=== PATIENT | female | born 1970 | race Caucasian/White ===

== ENCOUNTER → 2021-01-03 10:12 | Outpatient (BNVA) | payer MEDICAID, SELFPAY | PROVIDERS: PCP Dermatology; Visit Provider Physician Assistant ==

== ENCOUNTER → 2021-01-10 07:26 | Outpatient (BNVA) | payer MEDICAID, SELFPAY | PROVIDERS: PCP Dermatology; Visit Provider Surgery ==

== ENCOUNTER → 2021-02-17 08:44 | Outpatient (BNVA) | payer MEDICAID, SELFPAY | PROVIDERS: PCP Dermatology; Visit Provider Dietitian, Registered ==

== ENCOUNTER → 2022-12-30 10:46 | Outpatient (BNVA) | payer OTHER, SELFPAY | PROVIDERS: PCP Dermatology; Visit Provider Physician Assistant Surgical | DX: Z13.89 Encounter for screening for other disorder (principal) ==

== ENCOUNTER → 2022-12-31 13:22 | Outpatient (BNVA) | payer OTHER, SELFPAY | PROVIDERS: PCP Dermatology; Referring Provider Dermatology; Visit Provider Physician Assistant Surgical | DX: Z11.0 Encounter for screening for intestinal infectious diseases (principal); E66.01 Morbid (severe) obesity due to excess calories; Z68.41 Body mass index [BMI] 40.0-44.9, adult | CPT/HCPCS: 99211; 99212 ==

== ENCOUNTER 2022-12-31 17:21 | Outpatient (REF) | payer OTHER, SELFPAY ==
[2023-01-02 15:03] LABS: H Pylori Breath Test Positive (Negative)
== END 2022-12-31 17:22 | disposition home or self-care (01) ==
LOC: HO.LNP 17:21
PROVIDERS: Visit Provider Physician Assistant Surgical
DX: E66.01 Morbid (severe) obesity due to excess calories (principal); Z11.0 Encounter for screening for intestinal infectious diseases
CPT/HCPCS: 83013

== ENCOUNTER 2023-01-02 08:04 | Outpatient (REF) | payer OTHER, SELFPAY ==
--- NOTE | ~2023-01-02 | XR_ITS ---
EXAMINATION: XR CHEST CLINICAL INFORMATION: Morbid/severe obesity due to excess calories COMPARISON: None TECHNIQUE: 2 views of the chest were obtained. FINDINGS: No significant abnormality is noted involving the heart, lungs, mediastinum, bony thorax or soft tissues. XR/XR chest 2V IMPRESSION: Unremarkable chest examination.
[2023-01-02 08:53] LABS: MANUAL DIFF FLAG NO
[2023-01-02 09:20] LABS: Basophils Percent Auto 0.6 % (0-2); Eosinophils Absolute Auto 0.1 X10*3/uL (0.0-0.4); Eosinophils Percent Auto 1.7 % (0-4); Estimated Average Glucose 108 mg/dL; Hematocrit 38.9 % (37.0-47.0); Hemoglobin 12.7 g/dl (12.0-16.0); Hemoglobin A1c % 5.4 %; Imm Gran Abs Auto 0.02 X10*3/uL (0.00-0.03); Imm Gran Pct Auto 0.3 % (0.0-0.4); Lymphocytes Absolute Auto 1.5 X10*3/uL (1.2-4.9); Lymphocytes Percent Auto 22.3 % (20-40); Mean Corpuscular HGB Conc 32.6 g/dl (31.0-35.0); Mean Corpuscular Hemoglobin 28.6 pg (27.0-33.0); Mean Corpuscular Volume 87.6 fL (80.0-98.0); Mean Platelet Volume 10.2 fL (9.4-12.3); Monocytes Absolute Auto 0.5 X10*3/uL (0.1-1.2); Neutrophils Absolute Auto 4.4 x10*3/uL (2.0-8.3); Neutrophils Percent Auto 67.1 % (45-73); Platelet Count 327 X10*3/uL (160-400); Red Blood Count 4.44 X10*6/uL (4.20-5.50); White Blood Count 6.5 X10*3/uL (4.8-10.8)
[2023-01-02 10:17] LABS: Alanine Aminotransferase 15 U/L (0-31); Albumin Level 4.3 g/dL (3.5-5.0); Alkaline Phosphatase 95 U/L (39-117); Anion Gap 13 (12-20); Aspartate Amino Transferase 15 U/L (5-31); Bilirubin Total 0.6 mg/dL (0.0-1.0); Blood Urea Nitrogen 14 mg/dL (9-16); C Reactive Protein 1.37 mg/dL (< or = 0.50); Carbon Dioxide 24 mmol/L (22-29); Chloride 109 mmol/L (96-108); Cholesterol 246 mg/dL; Estimated Glomerular Filt Rate > 60; Ferritin 78 ng/mL (10-250); Glucose Random 102 mg/dL (60-115); HDL Cholesterol 46 mg/dL; Insulin 9 uU/mL (2-29); Iron 87 mcg/dL (30-160); LDL Cholesterol Calculated 176 mg/dl; Percent Iron Saturation 32 % (15-50); Potassium 3.8 mmol/L (3.3-5.1); Sodium 142 mmol/L (135-145); TSH reflex Free T4 2.49 uIU/mL (0.32-4.0); Total Iron Binding Capacity 269 mcg/dL (228-428); Total Protein 7.3 g/dL (6.5-8.0); Triglycerides 124 mg/dL; Unsaturated Iron Binding 182 ug/dL; Vitamin B12 355 pg/mL (200-900); Vitamin D 25-OH Total 13.9 ng/mL (>30)
[2023-01-04 15:53] LABS: Calcium (PTHI) 9.1 mg/dL (8.6-10.4); PTHI 90 pg/mL (16-77)
[2023-01-05 16:23] LABS: Zinc 74 mcg/dL (60-130)
[2023-01-06 16:19] LABS: Vitamin A 26 mcg/dL (38-98)
[2023-01-07 16:24] LABS: Vitamin B1 12 nmol/L (8-30)
== END 2023-01-02 08:05 | disposition home or self-care (01) ==
LOC: HO.LAB 08:04
PROVIDERS: PCP Dermatology; Visit Provider Physician Assistant Surgical
DX: E66.01 Morbid (severe) obesity due to excess calories (principal)
CPT/HCPCS: 36415; 71046; 80053; 80061; 82306; 82607; 82728; 82746; 83036; 83525; 83540; 83970; 84425; 84443; 84590; 84630; 85025; 86140

== ENCOUNTER → 2023-01-04 07:28 | Outpatient (REF) | payer OTHER, SELFPAY ==
--- NOTE | 2023-01-04 07:51 | ECG_ITS ---
Test Reason : e66.01 Blood Pressure : / mmHG Vent. Rate : 086 BPM Atrial Rate : 086 BPM P-R Int : 182 ms QRS Dur : 084 ms QT Int : 366 ms P-R-T Axes : 047 017 038 degrees QTc Int : 437 ms Normal sinus rhythm Normal ECG No previous ECGs available Referred By: Rainer Sigala Electronically Signed By:
== END ==
LOC: HO.CARD 07:28
PROVIDERS: PCP Internal Medicine; Visit Provider Physician Assistant Surgical
DX: E66.01 Morbid (severe) obesity due to excess calories (principal)
CPT/HCPCS: 93005

== ENCOUNTER → 2023-01-18 11:35 | Outpatient (BNVA) | payer OTHER, SELFPAY | PROVIDERS: PCP Internal Medicine; Visit Provider Physician Assistant Surgical ==

== ENCOUNTER → 2023-01-29 14:18 | Outpatient (BNVA) | payer OTHER, SELFPAY | PROVIDERS: PCP Internal Medicine; Referring Provider Physician Assistant Surgical; Visit Provider Dietitian, Registered | DX: E66.9 Obesity, unspecified (principal); Z68.38 Body mass index [BMI] 38.0-38.9, adult | CPT/HCPCS: 97802 ==

== ENCOUNTER → 2023-02-19 14:58 | Outpatient (BNVA) | payer MEDICAID, SELFPAY | PROVIDERS: PCP Internal Medicine; Visit Provider Dietitian, Registered ==

== ENCOUNTER 2023-02-23 09:34 | Outpatient (REF) | payer MEDICAID, SELFPAY ==
[2023-02-24 13:49] LABS: H Pylori Breath Test Negative (Negative)
== END 2023-02-23 09:35 | disposition home or self-care (01) ==
LOC: HO.LNP 09:34
PROVIDERS: PCP Internal Medicine; Visit Provider Physician Assistant Surgical
DX: Z01.818 Encounter for other preprocedural examination (principal); E66.01 Morbid (severe) obesity due to excess calories; A04.8 Other specified bacterial intestinal infections; Z71.3 Dietary counseling and surveillance; Z79.899 Other long term (current) drug therapy
CPT/HCPCS: 83013; 99211; 99212

== ENCOUNTER → 2023-03-04 13:00 | Outpatient (BNVA) | payer OTHER, SELFPAY | PROVIDERS: PCP Internal Medicine; Visit Provider Counselor Mental Health ==

== ENCOUNTER → 2023-03-17 14:03 | Outpatient (BNVA) | payer OTHER, SELFPAY | PROVIDERS: PCP Internal Medicine; Visit Provider Dietitian, Registered | DX: E66.01 Morbid (severe) obesity due to excess calories (principal); K21.9 Gastro-esophageal reflux disease without esophagitis; Z68.36 Body mass index [BMI] 36.0-36.9, adult; Z71.3 Dietary counseling and surveillance | CPT/HCPCS: 97803 ==

== ENCOUNTER → 2023-03-26 12:47 | Outpatient (BNVA) | payer OTHER, SELFPAY | PROVIDERS: PCP Internal Medicine; Visit Provider Physician Assistant Surgical ==

== ENCOUNTER → 2023-04-16 08:59 | Outpatient (BNVA) | payer OTHER, SELFPAY | PROVIDERS: PCP Internal Medicine; Visit Provider Surgery ==

== ENCOUNTER 2023-06-07 07:53 | Outpatient (AMB) | payer OTHER, SELFPAY ==
--- OUTSIDE RECORDS SUMMARY | 2023-06-07 07:55 | XMS_ITS | Continuity of Care Document ---
Author Name Unknown Organization [facility] Address [address] [place] [address]- Care Team Providers Care Manager Heart Failure Name Role Phone Not on Staff, PCP Primary Care Physician Unavail able Encounter [facility] Date(s): 11/20/20 - 12/20/[address] [address]- Attending Physician: Todd Tomlinson Admitting Physician: Todd Tomlinson Referring Physician: Todd Tomlinson
--- OUTSIDE RECORDS SUMMARY | 2023-06-07 07:55 | XMS_ITS | Continuity of Care Document ---
Author Name Unknown Organization [facility] Address [address] [place] [address]- Care Team Providers Care Water Pollution Scientist Name Role Phone Not on Staff, PCP Primary Care Physician Unavail able Encounter [facility] Date(s): 01/15/21 - 02/14/[address] [address]-
--- NOTE | 2023-06-07 13:44 | MHC.OFFVISWM ---
Intake VS Expanded 06/07/23 13:55 Height 5 ft 4.5 in Weight 212 lb 4 oz BMI 35.9 Body Fat 99.4 Body Fat Percentage 46.8 Free Fat Mass 112.8 Visceral Mass 18 Water Mass 77.5 BMR 1,476 Intake Visit Reasons: TV Follow Up SWL Allergies Pure protein Allergy (Mild, Uncoded 04/16/23 11:36) Hives HPI TV Follow Up SWL HPI Details Start time: 1.37pm, End time: 2pm ?I spent 18 minutes speaking with the patient on the phone plus an additional 5 minutes reviewing and updating records for a total of 23 minutes HPI Comments History of Present Illness Details Overall weight loss: 30.4lbs, or 12.57% Is doing 1 Orgain protein shake (2 scoops in almond milk), one Orgain protein shake (1 scoop in almond milk), one Zone Perfect protein bar and one meal (8 forks of meat and 8 forks of salad or vegetables) Exercise: walking outside and home exercise videos PFSH Medical History GERD (gastroesophageal reflux disease) Migraines Morbid obesity Seizure Surgical History Hx of bilateral salpingectomy Family History Mother Hypertension Father Hypertension Hyperlipidemia Sister No problems noted. Sister No problems noted. Brother No problems noted. Brother No problems noted. Brother No problems noted. Daughter Obesity Social History Alcohol intake: former Patient Tobacco Use Status: Never used Tobacco Assessment & Plan Assessment & Plan (1) Obesity: Code(s): E66.9 - Obesity, unspecified Plan: 1. Change nutritional plan to 2 Orgain protein shake (2 scoops each in 8oz almond milk), HALF Zone Perfect protein bar and one meal (8 forks of meat and 8 forks of salad or vegetables) 2. Exercise: please do daily: a) treadmill at speed 4.5 mph for 150 calories, b) walking outside for 30 minutes and c) the home exercise video 3. Continue to send me weight measurements weekly on Mondays (2) BMI 35.0-35.9,adult: Code(s): Z68.35 - Body mass index [BMI] 35.0-35.9, adult Telehealth Telehealth Location of provider rendering services: practice address Location of patient: address on file Patient Identification confirmed using: Name, : Yes Telehealth method: voice only Patient verbally consented to treatment: Yes Patient verbally consented to billing insurance company: Yes Patient informed of any privacy concerns related to visit: Yes Minutes spent on Phone/Video with Pt.: 23 Coding Level of Care Code Tele Est Pt Level 3 (31179) Diagnoses Obesity E66.9 BMI 35.0-35.9,adult Z68.35 Time Spent (min) 23
[2023-06-07 13:55] VITALS: BMI 35.9
== END 2023-06-07 14:01 | disposition home or self-care (01) ==
LOC: HO.HBS 07:53
PROVIDERS: PCP Internal Medicine; Visit Provider Surgery
DX: E66.9 Obesity, unspecified (principal); Z68.35 Body mass index [BMI] 35.0-35.9, adult
CPT/HCPCS: 99213

== ENCOUNTER → 2023-06-07 07:53 | Outpatient (BNVA) | payer OTHER, SELFPAY | PROVIDERS: PCP Internal Medicine; Visit Provider Surgery ==